=== PATIENT | male | born 1940 | race Caucasian/White ===

== ENCOUNTER → 2016-09-11 | Outpatient (CLI) | payer MEDICARE, BC | END | disposition disaster alternative care site (69) | LOC: GRAD 15:41 | DX: R20.0 Anesthesia of skin (principal); M47.896 Other spondylosis, lumbar region; M43.17 Spondylolisthesis, lumbosacral region; R29.898 Other symptoms and signs involving the musculoskeletal system ==

== ENCOUNTER → 2016-09-19 | Outpatient (CLI) | payer MEDICARE, BC ==
--- NOTE | ~2016-09-19 | ENPV ---
Carotid Duplex Study Demographics Patient Name BULMARO ADAIR JR Date of Study 09/19/2016 Patient Number [id number] Gender Male Date of 1940 Age 76 Visit Number [id number] Height 68 Accession Number [id number] Weight 155 Referring Cally Mcgowan Physician Physician Physician Ordering Physician Cally Monzon MD [employer] Architect Calibration Technician Demetri Mcgowan BS, RT Conclusions Summary The right vertebral artery is present with antegrade flow. The left vertebral artery is present with antegrade flow. No evidence of plaque or stenosis in the right internal carotid artery. No evidence of plaque or stenosis in the left internal carotid artery. Procedure Type of Study: Cerebral:Carotid, Carotid Doppler Bilateral. Indications for Study:Numbness. Patient Status:Routine. Study Location:Vascular Lab. Technical Quality:Adequate visualization. - Preliminary reported to:Dr. Alamo. Velocities are measured in cm/s ; Diameters are measured in cm Carotid Right Measurements Carotid Left Measurements + +--------+--------+ + + + +--------+ --------+ + + !Location !PSV !EDV !Angle !%Stenosis ! !Location !PSV ! EDV !Angle !%Stenosis ! + +--------+--------+ + + + +--------+ --------+ + + !Prox CCA !66 !11 !60 ! ! !Prox CCA !102 ! 26 !60 ! ! + +--------+--------+ + + + +--------+ --------+ + + !Dist CCA !78 !19 !60 ! ! !Dist CCA !70 ! 20 !60 ! ! + +--------+--------+ + + + +--------+ --------+ + + !Prox ICA !60 !26 !60 ! ! !Prox ICA !74 ! 33 !60 ! ! + +--------+--------+ + + + +--------+ --------+ + + !Dist ICA !50 !10 !60 ! ! !Dist ICA !52 ! 22 !46 ! ! + +--------+--------+ + + + +--------+ --------+ + + !Prox ECA !81 ! !60 ! ! !Prox ECA !67 ! !60 ! ! + +--------+--------+ + + + +--------+ --------+ + + !Vertebral !31 ! !60 ! ! !Vertebral !33 ! !60 ! ! + +--------+--------+ + + + +--------+ --------+ + + !Subclavian !90 ! !60 ! ! !Subclavian !96 ! !60 ! ! + +--------+--------+ + + + +--------+ --------+ + + - There is antegrade vertebral flow noted on the right side. - There is antegrade verte bral flow noted on the left side. - Add'l Measurements:ICAPSV/CCAPSV 0.92.ICAEDV/CCAEDV 2.3. - Add'l Measurements:ICAPS V/CCAPSV 0.73.ICAEDV/CCAEDV 1.26. Signature dtt: Ryley Sue dtlevi: 09/19/16 1103 Physician Self Edit
--- NOTE | ~2016-09-19 | ECHO ---
Transthoracic Echocardiography Report (TTE) Demographics Patient Name BULMARO ADAIR JR Date of Study 09/19/2016 Patient Number [id number] Visit Number [id number] Date of 1940 Room Number Gender Male Number Age 76 year(s) Referring [facility] Jb Puckett Contact Lens Cutter Kit Morris RVT, Physician RD Cally Monzon MD Physician Interpreting Josselyn Purdy Metal Roaster Physician A Supervising Ordering Cally Monzon MD, MD/MLP Physician Nurse [employer] Liaison Conclusions Summary The estimated left ventricular ejection fraction is 60%. Mild concentric left ventricular hypertrophy. Diastolic assessment reveals Grade I diastolic dysfunction. There is no evidence of patent foramen ovale or atrial septal defect by color Doppler. Mild mitral regurgitation by color Doppler. Procedure Type of Study TTE procedure:2D Echocardiogram. Procedure Date Date: 09/19/2016 Start: 11:31 AM Study Location: Echo Lab Technical Quality: Adequate visualization Indications:CVA. Appropriate Use Criteria: 8 Patient Status: Routine Rhythm: NSR HR: 66 bpm BP: 138/93 mmHg M-Mode/2D Measurements LV Diastolic Dimension: 3.98 cm LV Systolic Dimension: 2.35 cm LV Septum Diastolic: 1.46 cm LV PW Diastolic: 1.42 cm AO Root Dimension: 2.9 cm Cardiac Output: 4.76 l/min AV Cusp Separation: 2.1 cm RV Diastolic Dimension: 3.19 cm LA volume: 27 ml LVOT: 2.24 cm RV Base: 3.65 cm LVOT VTI: 18.3 cm RV Mid: 2.54 cm LV Stroke volume: 72.08 ml TAPSE: 2.87 cm TDI-S': 14.5 cm/s Doppler Measurements AV Peak Velocity: 0.98 m/s MV Peak E-Wave: 0.5 m/s AV Peak Gradient: 3.83 mmHg MV Peak A-Wave: 0.74 m/s AV Mean Gradient: 3 mmHg MV E/A Ratio: 0.68 LVOT Peak Velocity: 0.92 m/s MV P1/2t: 78 msec TR Gradient:16.16 mmHg PV Peak Velocity: 0.85 m/s Estimated RAP:5 mmHg PV Peak Gradient: 2.86 mmHg Estimated RVSP: 21 mmHg Estimated PASP: 21.16 mmHg E' Septal Velocity: 0.05 m/s A' Septal Velocity: 0.12 m/s E' Lateral Velocity: 0.09 m/s A' Lateral Velocity: 0.13 m/s Findings Left Ventricle Mild concentric left ventricular hypertrophy. Diastolic assessment reveals Grade I diastolic dysfunction. Right Ventricle Normal right ventricle structure and function. Left Atrium Normal left atrial size. There is no evidence of patent foramen ovale or atrial septal defect by color Doppler. Right Atrium Normal right atrial size. IVC measures 1.72 cm with inspiratory collapse. Mitral Valve Mild mitral regurgitation by color Doppler. Aortic Valve Mildly sclerotic trileaflet aortic valve. Tricuspid Valve Normal tricuspid valve structure and function. Trivial tricuspid regurgitation by color Doppler. Pulmonic Valve Normal pulmonic valve structure and function. Pericardial Effusion No evidence of pericardial effusion. Miscellaneous Visualized portions of the aortic root and ascending aorta appear normal in size. Pleural Effusion No evidence of pleural effusion. Signature dtt: Ashish Arcos dtd: 09/19/16 1131 Physician Self Edit
[2016-09-19 13:19] LABS: CREATININE 1.1 mg/dL (0.6-1.3); ESTIMATED GFR (MDRD EQUATION) > 60
== END | disposition disaster alternative care site (69) ==
LOC: GRAD 09:52
PROVIDERS: Neurological Surgery
DX: G45.9 Transient cerebral ischemic attack, unspecified (principal); I34.0 Nonrheumatic mitral (valve) insufficiency; R20.0 Anesthesia of skin
CPT/HCPCS: Q9967